=== PATIENT | male | born 1955 | race Caucasian/White ===

== ENCOUNTER 2017-04-01 09:57 | Emergency (ER) | payer BC ==
[~2017-04-01] VITALS: Ht 170.2 cm; Wt 75.2 kg
[2017-04-01 10:02] VITALS: BP 120/70; PULSE 62; RESP 16; TEMP 97.9; O2SAT 95
--- NOTE | 2017-04-01 10:51 | PD ---
HPI Chief Complaint: ENT Complaint Time Seen by Provider: 10:18 Travel History International Travel<30 days: No Contact w/Intl Traveler<30days: No Traveled to known affect area: No History of Present Illness HPI Patient comes in complaining of difficulty swallowing over the past 2 days. Patient reports he can still swallow liquids but feels solids get stuck causing him to vomit them back up. Patient states he's had this happen to him intermittently over the years and usually goes away on its own however does not seem be resolving this time. Patient denies any pain with this except when food gets stuck. Denies doing anything for this. Reports seems to get worse when eating spicy foods or drinking alcohol so he has cut back. Denies anything making it better but started taking Nexium [id number] past 2 days. Patient reports a history of acid reflux but does not take anything for this regularly. Denies any fevers, chest pain, shortness of breath, neck pain, sore throat, weakness, or loss change in bowel or bladder. PFSH Past Medical History Medical History: Denies Significant Hx Tetanus Vaccination: > 5 Years Influenza Vaccination: No Past Surgical History Other Surgery: Yes (TONSAL ABCESS) Social History Alcohol Use: Yes (SOCIAL) Tobacco Use: No Substance Use: No Allergies-Medications (Allergen,Severity, Reaction): Coded Allergies: No Known Allergies (Unverified , 04/01/17) Reported Meds & Prescriptions Reported Meds & Active Scripts Active Nexium (Esomeprazole DR) 40 Mg Capdr 40 Mg PO DAILY Review of Systems Except as stated in HPI: all other systems reviewed are Neg Physical Exam Narrative GENERAL: Well-developed, overly nourished, in no acute distress, and non-ill appearing. SKIN: Focused skin assessment warm and dry. HEAD: Atraumatic. Normocephalic. EYES: Pupils equal and round. EOMI. No scleral icterus. No injection or drainage. ENT: No nasal bleeding or discharge. Mucous membranes pink and moist. Tympanic membranes pearly means bilaterally. Posterior pharynx erythematous without exudate. Postnasal drip noted. Uvula is midline. NECK: Trachea midline. No cervical lymphadenopathy. Supple. No nuclear rigidity. CARDIOVASCULAR: Regular rate and rhythm. No murmur appreciated. RESPIRATORY: No accessory muscle use. No respiratory distress. Clear to auscultation. Breath sounds equal bilaterally. MUSCULOSKELETAL: No obvious deformities. No clubbing. No cyanosis. No edema. Full range of motion. NEUROLOGICAL: Awake and alert. No obvious cranial nerve deficits. Motor grossly within normal limits. Normal speech. PSYCHIATRIC: Appropriate mood and affect; insight and judgment normal. Data Data Last Documented VS Vital Signs Date Time Temp Pulse Resp B/P (MAP) Pulse Ox O2 Delivery O2 Flow Rate FiO2 04/01/17 10:02 97.9 62 16 120/70 (87) 95 Orders Orders Chest, Pa & Lat (04/01/17 ) Ed Discharge Order (04/01/17 11:44) MDM Medical Decision Making Medical Screen Exam Complete: Yes Emergency Medical Condition: Yes Interpretation(s) Last Impressions Chest X-Ray 04/01/17 0000 Signed Impressions: Service Date/Time: , April 01, 2017 10:45 - CONCLUSION: No acute disease. Stefano Campuzano MD Differential Diagnosis Reflux, esophageal spasm, achalasia, dysphagia, mass Narrative Course Patient was given a order for outpatient [facility] swallow [facility] with results to be sent to Dr. Rodriguez. Patient in no obvious distress upon re-evaluation. All pertinent Radiology result(s) discussed with patient/family. Discussed patient with Dr. Bowser prior to discharge, who is in agreement of care and disposition. Patient was asked if they wanted to speak to my attending, which the patient did not wish to do at this time. Any questions/concerns in reference to patient diagnosis/ condition discussed and clarified prior to patient's discharge. Reinforced sheer importance of close follow up with patient's primary physician or primary care clinic. Instructed patient to return to ED immediately, if symptoms return/ worsen. Patient showed understanding of above instructions. Further instructions and recommendations were detailed in discharge paperwork. Patient ambulated without difficulty out of ED at discharge. Physician Communication Physician Communication [id number] Rodriguez, GI on-call who recommends obtaining a barium swallow study, starting PPI, and follow-up with her in the office. Diagnosis Primary Impression: Achalasia of esophagus Referrals: Cele Rodriguez MD 3 days Patient Instructions: Barium Swallow (DC), Dysphagia (ED), General Instructions Additional Instructions: Follow-up with Dr. Rodriguez after having your barium swallow study. Call today for an appointment for the barium swallow study and for follow-up with Dr. Rodriguez. Take all medication as prescribed. Return to the emergency department if symptoms get worse or unable to swallow liquids. Med/Other Pt SpecificInfo: Prescription(s) given Scripts Esomeprazole (Nexium) 40 Mg Capdr 40 MG PO DAILY, #14 CAP 0 Refills Prov: Maria D Bowser DO 04/01/17 Disposition: 01 DISCHARGE HOME Condition: Stable Awais Anthony Apr 01, 2017 10:51
--- NOTE | 2017-04-01 11:12 | RADRPT ---
EXAM DATE/TIME: 04/01/2017 10:45 [facility] COMPARISON: No previous studies available for comparison. INDICATIONS : Difficulty swallowing, vomiting. MEDICAL HISTORY : None. SURGICAL HISTORY : Tonsil abcess ENCOUNTER: Initial ACUITY: 2 days PAIN SCORE: 0/10 LOCATION: chest FINDINGS: PA and lateral views of the chest demonstrate the lungs to be symmetrically aerated without evidence of mass, infiltrate or effusion. The cardiomediastinal contours are unremarkable. Osseous structure s are intact. CONCLUSION: No acute disease. Stefano Campuzano MD on April 01, 2017 at 11:09 Board Certified Radiologist. This report was verified electronically.
[2017-04-01] MEDS ORDERED: NEXI40CA PO (11:44)
[2017-04-02] MEDS ORDERED: TUMS500C CHEW (07:45)
== END 2017-04-01 11:53 | disposition home or self-care (01) ==
LOC: PHED 09:57
DX: K22.0 Achalasia of cardia (principal)
CPT/HCPCS: 71020; 99283

== ENCOUNTER → 2017-04-02 | Outpatient (CLI) | payer BC ==
[~2017-04-02] VITALS: Ht 170.2 cm; Wt 75.6 kg
[~2017-04-02] MED LIST: ALUMINUM/MAGNESIUM/SIMETH 30 ML CUP PO ONE; CHLORHEXIDINE GLUCONATE 2 % 1 PACK (2 CLOTHS) TOPICAL PRN; FLUMAZENIL 0.5 MG/5 ML VIAL IV PUSH PRN; INSULIN HUMAN REGULAR 1,000 UNITS/10 ML VIAL SQ PRN; LACTATED RINGER'S 1000 ML IV PRN; METOPROLOL TARTRATE 25 MG TAB PO PRN; NALOXONE HCL 0.4 MG/ML AMP IV PUSH PRN; NEXI40CA PO; PANTOPRAZOLE INJ 80 MG in SODIUM CHLORIDE 0.9% INJ 35 ML IV ONE; POVIDONE IODINE 5% (ANTISEPSIS KIT) 4 APPLICATIONS EACH NARE PRN; PROPOFOL 200 MG/20 ML AMP IV ONE; SODIUM CHLORID 0.9% 500 ML IV PRN; TUMS500C CHEW
--- NOTE | 2017-04-02 10:36 | HHI.GIFU ---
Subjective Remarks EGD with dilatation siwth savary dilator 14mm, 15mm. Esophageal stricture present at 30cm esophagus. FB ws present and it wasw removed with townsend net. Distal to stricture there was barretts esohagus and a small ulcer. Biopsies were taken. Stomach had mild gastritis and biopsy was obtained. Duodenum was normal. Objective Vitals I&O Vital Signs Date Time Temp Pulse Resp B/P (MAP) Pulse Ox O2 Delivery O2 Flow Rate FiO2 04/02/17 07:48 98.1 54 16 127/77 (94) 99 Physical Exam HEENT: Pupils round and reactive to light; normocephalic; atraumatic; no jaundice. Throat is clear. NECK: Neck is supple, no JVD, no lymphadenopathy. CHEST: Chest is clear to auscultation and percussion. CARDIAC: Regular rate and rhythm with no murmur gallop or rubs. ABDOMEN: Soft, nondistended, nontender; no hepatosplenomegaly; bowel sounds are present in all four quadrants. EXTREMITIES: No clubbing, cyanosis, or edema. SKIN: Normal; no rash; no jaundice. GROOVING LATHE TENDER: No focal deficits; alert and oriented times three. Assessment and Plan Plan Protonix 80mg IV now Maalox 60cc po now. Resume full liquid diet. advance as tolerated. Start Protonix or omeprazole 40 mg PO daily. Followup in two or three weeks with GI doc at home in [place]. Earlier here PRN. Dx: FB esophagus Esophageal stricture, benign Barretts esophagus with ulceration. Gastritis. Zen Baker MD Apr 02, 2017 10:36
[2017-04-02 11:30] VITALS: BP 126/79; PULSE 52; RESP 18; TEMP 97.6; O2SAT 100
--- NOTE | 2017-04-03 09:32 | EKG ---
Date Performed: 04/02/2017 Time Performed: 08:00:09 PTAGE: 61 years EKG: SINUS BRADYCARDIA BORDERLINE ECG NO PREVIOUS TRACING DOCTOR: Fred Hester Interpretating Date/Time 04/03/2017 09:31:32
== END ==
LOC: HSDC 07:06
PROVIDERS: ATTEND Internal Medicine Gastroenterology
DX: R13.10 Dysphagia, unspecified (principal); K44.9 Diaphragmatic hernia without obstruction or gangrene; K22.2 Esophageal obstruction; K22.70 Barrett's esophagus without dysplasia; K29.70 Gastritis, unspecified, without bleeding; T18.108A Unspecified foreign body in esophagus causing other injury, initial encounter; R00.1 Bradycardia, unspecified
CPT/HCPCS: 00740; 43239; 43247; 43248; 88305; 88312; 93005; C1769; C9113; J7120